=== PATIENT | female | born 1990 | race Hispanic/Latino ===

== ENCOUNTER → 2018-12-31 | Day surgery (SDC) | payer OTHER ==
[~2018-12-31] MED LIST: CARAFATE1 GM PO; CIPRO500 MG PO; FENTANYL CITRATE/PF 100MCG/2 ML INJ ONE; GLUCAGON FOR INJ 1 MG VIAL ONE; MIDAZOLAM HCL 2 MG/2 ML VIAL ONE; MULTI-VITAMIN1 EACH PO; OMEPRAZOLE PO; PROPOFOL IV EMULSION 10 MG/ML 50 ML VIAL ONE; REGLAN5 MG PO; ULTRAM 50MG50 MG PO; VITAMIN B PO
[2018-12-31 18:35] VITALS: BP 110/71
--- NOTE | 2018-12-31 20:01 | Operative Report ---
DATE OF PROCEDURE: 12/31/2018 SURGEON: Efren Dave MD PROCEDURE: Endoscopic retrograde cholangiopancreatography with endoscopic retrograde sphincterotomy and balloon sweep with stone extraction. INDICATIONS FOR PROCEDURE: Cholelithiasis, elevated liver enzymes, and choledocholithiasis on MRCP. MEDICATIONS: The patient was done under MAC, please see anesthesiologist's note. PROCEDURE IN DETAIL: With the patient in the prone position, the flexible fiberoptic side-viewing Olympus scope was introduced into the esophagus and advanced all the way to the second portion of the duodenum. The ampulla was identified and grossly appeared within normal limits. The ampulla was then cannulated and a cholangiogram was done revealing a filling defect in the distal common bile duct. ERS was then carried out in the usual fashion and balloon sweep x3 was carried out with removal of some solid debris and one stone. The scope was subsequently withdrawn. The patient tolerated the procedure well. IMPRESSION: 1. Ampulla within normal limits. 2. Cholangiogram revealed a filling defect in the distal common bile duct. 3. Endoscopic retrograde sphincterotomy was carried out in the usual fashion. 4. Balloon sweep x3 with removal of debris and a stone. The patient tolerated the procedure well. The patient is cleared for a lap jose antonio by Dr. Taylor Peralta. Efren Dave MD [facility] [place] [place] /[id number] cc: Jose Peralta MD
--- NOTE | 2019-01-05 08:11 | Diagnostic Imaging Report ---
Exam: ERCP Clinical history: Choledocholithiasis Comparison: MRCP, December 31, 2018 Total fluoroscopy time 1.5 minutes Total images over 30 Findings: The common bile duct was cannulated during ERCP radiologist was not present during the exam. A small intraluminal filling the pelvis noted in the common bile duct which may represent air bubble versus stone. Multiple balloon sweeps were performed. The post sweep cholangiogram demonstrates no evidence of residual filling defect. There was no evidence of stricture or dilation of the intrahepatic biliary radicles. The common bile and common hepatic ducts are mildly prominent. Signed by: Dr. Kristopher Livingston MD on 01/05/2019 8:08 AM
== END | disposition home or self-care (01) ==
LOC: ENDO 15:13
PROVIDERS: ATTEND Internal Medicine Gastroenterology
DX: K80.60 Calculus of gallbladder and bile duct with cholecystitis, unspecified, without obstruction (principal); R79.89 Other specified abnormal findings of blood chemistry
CPT/HCPCS: 43262; 43264; 74328; 81025; J1610; J2250; J2704; J3010; 43260

== ENCOUNTER → 2018-12-31 | Outpatient (CLI) | payer OTHER ==
[~2018-12-31] MED LIST changes: -FENTANYL CITRATE/PF 100MCG/2 ML INJ ONE; +GADOBENATE DIMEGLUMINE 1 ML IV ONE; -GLUCAGON FOR INJ 1 MG VIAL ONE; +INDOMETHACIN 50 MG SUPP.RECT RC ONE; +IOPAMIDOL 610MG/1ML 300 MG/ML VIAL IV ONE; -MIDAZOLAM HCL 2 MG/2 ML VIAL ONE; -PROPOFOL IV EMULSION 10 MG/ML 50 ML VIAL ONE; +SODIUM CHLORIDE 0.9% 100 ML 100 ML ONE
--- NOTE | 2018-12-31 13:05 | Diagnostic Imaging Report ---
MRI/MRCP of the abdomen, with and without contrast, 12/31/2018. History: Abdominal pain for 5 days, cholelithiasis. Comparison: None available. Technique: Multiplanar, multisequence imaging of the abdomen was performed pre- and post-IV administration of 15 cc of gadolinium. Dynamic enhanced images of the liver were included. 3-D MRCP fat-saturated sequence was performed post contrast with MIP reformations. Discussion: The gallbladder is distended measuring 5 cm in transverse diameter. Multiple hypointense filling defects consistent with stones are present in the dependent portion. There is no gallbladder wall thickening or pericholecystic fluid. There is intrahepatic and extra hepatic biliary ductal dilatation with the common bile duct measuring up to 1.1 cm. A 5 mm hypointense filling defect is seen within the distalmost aspect of the common bile duct, best seen on coronal series #8, image 20. The liver contour and size are normal. There is no evidence of an enhancing lesion. The hepatic, portal, splenic, and mesenteric veins are patent. The portal vein is normal in size measuring 1.3 cm in diameter. There is no evidence of ascites. The spleen, pancreas, kidneys, and adrenal glands are normal in appearance. The visualized loops of bowel and osseous structures are normal. There is no evidence of adenopathy. IMPRESSION: Cholelithiasis with a distal CBD stone causing biliary ductal dilatation. Recommend ERCP. Signed by: Frank Lubin on 12/31/2018 1:02 PM
== END ==
LOC: MRI 11:29
PROVIDERS: ATTEND Internal Medicine Gastroenterology
DX: K80.10 Calculus of gallbladder with chronic cholecystitis without obstruction (principal); R74.8 Abnormal levels of other serum enzymes
CPT/HCPCS: 74183; A9577; Q9967

== ENCOUNTER → 2019-01-22 | Day surgery (SDC) | payer OTHER ==
[2019-01-21 11:04] LABS: BASOPHILS % 0.1 % (0.0-1.0); EOSINOPHILS # (AUTO) 0.1 (0.0-0.4); EOSINOPHILS % 1.8 % (0.0-6.0); HEMATOCRIT 38.6 % (34.2-44.1); HEMOGLOBIN 12.9 g/dL (12.0-16.0); LYMPHOCYTES # (AUTO) 2.3 (1.0-3.2); LYMPHOCYTES % 31.7 % (18.0-39.1); MEAN CORPUSCULAR HEMOGLOBIN 29.7 pg (28-32); MEAN CORPUSCULAR HGB CONC 33.4 g/dL (31-35); MEAN CORPUSCULAR VOLUME 88.9 fL (81-99); MONOCYTES # (AUTO) 0.3 (0.2-0.8); MONOCYTES % 4.8 % (4.4-11.3); NEUTROPHILS # (AUTO) 4.4 (2.1-6.9); NEUTROPHILS % 61.3 % (38.7-80.0); PLATELET COUNT 364 x10e3/uL (140-360); RED BLOOD COUNT 4.34 x10e6/uL (3.6-5.1); RED CELL DISTRIBUTION WIDTH 12.2 % (11.7-14.4)
[2019-01-21 11:28] LABS: ALANINE AMINOTRANSFERASE 33 IU/L (0-55); ALBUMIN 3.9 g/dL (3.5-5.0); ALBUMIN/GLOBULIN RATIO 1.1 (0.8-2.0); ALKALINE PHOSPHATASE 96 IU/L (40-150); ANION GAP 11.7 mmol/L (8-16); BLOOD UREA NITROGEN 8 mg/dL (7-26); BUN/CREATININE RATIO 12 (6-25); CALCIUM 9.5 mg/dL (8.4-10.2); CARBON DIOXIDE 28 mmol/L (22-29); CHLORIDE 103 mmol/L (98-107); CREATININE, SERUM 0.67 mg/dL (0.57-1.11); EST GLOMERULAR FILTRATION RATE > 60 ML/MIN (60-); GLUCOSE 78 mg/dL (74-118); POTASSIUM 3.7 mmol/L (3.5-5.1); SODIUM 139 mmol/L (136-145)
[~2019-01-22] MED LIST changes: +BUPIVACAINE 0.25%/EPI 30ML SDV INJ ONE; +DEXAMETHASONE SOD PHOS INJ 4 MG/ML VIAL ONE; +FENTANYL CITRATE/PF 100MCG/2 ML INJ ONE; -GADOBENATE DIMEGLUMINE 1 ML IV ONE; +HYDROCODONE/APAP 7.5MG-325MG 1 EA TAB ONE; -INDOMETHACIN 50 MG SUPP.RECT RC ONE; +LIDOCAINE HCL 2% JELLY 5 ML TUBE ONE; +LIDOCAINE HCL 2% LOCAL INJ 5 ML SDV VIAL INJ ONE; +MIDAZOLAM HCL 2 MG/2 ML VIAL ONE; +ONDANSETRON HCL INJ 2MG/ML 2ML 2 MG/ML VIAL ONE; +PROPOFOL IV EMULSION 10 MG/ML 20 ML VIAL ONE; +ROCURONIUM BROMIDE 10 MG/ML 5ML VIAL ONE; +SEVOFLURANE INHAL SOLN 250 ML PEN BTL ONE; -SODIUM CHLORIDE 0.9% 100 ML 100 ML ONE
--- OUTSIDE RECORDS SUMMARY | 2019-01-22 08:40 | XMS REPORT ---
Author Author [facility] Address Unknown Phone Unavailable Care Team Providers Care Shallot Cleaner Name Role Phone ROBBIN JOHNSON Unavailable Unavailable Problems This patient has no known problems. Allergies, Adverse Reactions, Alerts This patient has no known allergies or adverse reactions. Medications This patient has no known medications. Results Test Description Test Time Test Comments Text Results Atomic Results Result Comments ERCP TO BE READ 2019-01-05 08:05:00 [facility] [address] [address] Patient Name: VALENTIN ONEILL MR #: [id number] : 1990 Age/Sex: 28/F Req #: [id number] [facility] Physician: Ordered by: ROBBIN JOHNSON MD Report #: [id number] Location: ENDO Room/Bed: Procedure: [id number] DX/ERCP TO BE READ Exam Date: 12/31/18 Exam Time: 1740 REPORT STATUS: Signed Exam: ERCP Clinical history: Choledocholithiasis Comparison: MRCP, December 31, 2018 Total fluoroscopy time 1.5 minutes Total images over 30 Findings: The common bile duct was cannulated during ERCP radiologist was not present during the exam. A small intraluminal filling the pelvis noted in the common bile duct which may represent air bubble versus stone. Multiple balloon sweeps were performed. The post sweep cholangiogram de monstrates no evidence of residual filling defect. There was no evidence of stricture or dilation of the intrahepatic biliary radicles. The common bile and common hepatic ducts are mildly prominent. Signed by: Dr. Kristopher Livinsgton MD on 01/05/2019 8:08 AM Dictated By: YKE LIVINGSTON MD 7 Transcribed By: MARILYN on 01/05/19807 COPY TO: ROBBIN JOHNSON MD MRI MRCP [facility] 2018-12-31 12:55:[address] [address] Patient Name: VALENTIN ONEILL MR #: [id number] : 1990 Age/Sex: 28/F Req #: [id number] Adm Physician: Ordered by: ROBBIN JOHNSON MD Report #: [id number] Location: MRI Room/Bed: Procedure: [id number] MRI/MRI MRCP [facility] Exam Date: Exam Time: REPORT STATUS: Signed MRI/MRCP of the abdomen, with and without contrast, 12/31/2018. History: Abdominal pain for 5 days, cholelithiasis. Comparison: None available. Technique: Multiplanar, multisequence imaging of the abdomen was performed pre- and post-IV administration of 15 cc of gadolinium. Dynamic enhanced images of the liver were included. 3-D MRCP fat-saturated sequence was performed post contrast with MIP reformations. Discussion: The gallbladder is distended measuring 5 cm in transverse diameter. Multiple hypointense filling defects consistent with stones are present in the dependent portion. There is no gallbladder wall thickening or pericholecystic fluid. There is intrahepatic and extra hepatic biliary ductal dilatation with the common bile duct measuring up to 1.1 cm. A 5 mm hypointense filling defect is seen within the distalmost aspect of the common bile duct, best seen on coronal series #8, image 20. The liver contour and size are normal. There is no evidence of an enhancing lesion. The hepatic, portal, splenic, and mesenteric veins are patent. The portal vein is normal in size measuring 1.3 cm in diameter. There is no evidence of ascites. The spleen, pancreas, kidneys, and adrenal glands are normal in appearance. The visualized loops of bowel and osseous structures are normal. There is no evidence of adenopathy. IMPRESSION: Cholelithiasis with a distal CBD stone causing biliary ductal dilatation. Recommend ERCP. Signed by: Frank Lubin on 12/31/2018 1:02 PM Dictated By: FRANK LUBIN MD 1302 Transcribed By: MARILYN on 12/31/18 1302 COPY TO: ROBBIN JOHNSON MD
--- NOTE | 2019-01-22 14:06 | Operative Report ---
DATE OF PROCEDURE: 01/22/2019 SURGEON: Jose Peralta MD PREOPERATIVE DIAGNOSIS: Cholecystitis and cholelithiasis. POSTOPERATIVE DIAGNOSIS: Cholecystitis and cholelithiasis. OPERATION PERFORMED: Laparoscopic cholecystectomy. ANESTHESIA: General. COMPLICATIONS: None. ESTIMATED BLOOD LOSS: Minimal. DESCRIPTION OF PROCEDURE: With the patient lying in bed in the supine position, under good general endotracheal anesthesia, the abdomen was prepped with Betadine solution and draped in the usual manner. A Veress needle was introduced into the umbilicus and pneumoperitoneum was established without any difficulty. An 11 mm trocar was placed in the umbilicus and a 10 mm video laparoscope was placed into the intraabdominal cavity. Under direct vision, three 5 mm trocars were placed in the right subcostal region, video laparoscopy at this point revealed a gallbladder that was tensely distended, very thick walled, was full of stones with one stone impacted in the proximal cystic duct, the rest of the abdominal exploration was otherwise, within normal limits. The peritoneum overlying the neck of the gallbladder was then opened and the antrum which was stuck to the lower part of the gallbladder was then slowly and carefully . Once this was done, the cystic duct was identified and there was again a large stone impacted within the proximal section of the cystic duct distal to this stone. The cystic duct was followed to its junction with the common duct. The cystic duct was then circumferentially dissected away from the common duct, doubly clipped and divided. The cystic artery had an anterior and a posterior branch, and both of these were individually clipped and divided. 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 Nonetheless, the gallbladder was totally and completely removed from the liver bed, placed in a pouch and removed through the umbilicus. Video laparoscopy was then again carried out. The liver bed was found to be perfectly dry. All of the excess fluid was aspirated. The pneumoperitoneum was evacuated and all the trocars were removed under direct vision. The midline fascia at the umbilicus was then closed with a [id number] of 0 Vicryl. All layers were infiltrated on the way out with solution of 0.25% Marcaine. Subcutaneous tissue was approximated with 3-0 Vicryl and the skin was closed with subcuticular 5-0 Vicryl. Benzoin, Steri-Strips, and Band-Aids were applied. The sponge, lap, and needle counts were correct. The patient tolerated the procedure well and returned to the recovery room in stable condition. MD MALCOLM Jose/TACOS /[id number]
[2019-01-22 14:25] VITALS: BP 130/84
== END | disposition home or self-care (01) ==
LOC: OR 08:38
PROVIDERS: ATTEND Surgery
DX: K80.10 Calculus of gallbladder with chronic cholecystitis without obstruction (principal); K74.0 Hepatic fibrosis; Z01.812 Encounter for preprocedural laboratory examination
CPT/HCPCS: 36415; 47562; 80053; 81025; 85025; 88304; J1100; J2001 ×2; J2250; J2405; J2704; J3010